=== PATIENT | male | born 1970 | race Two or more races ===

== ENCOUNTER → 2020-07-12 15:18 | Outpatient (CLI) | payer OTHER | END | disposition home or self-care (01) | LOC: LAB 15:18 | PROVIDERS: ATTEND Radiology Diagnostic Radiology | DX: N20.0 Calculus of kidney (principal) ==

== ENCOUNTER 2020-07-16 07:26 | Outpatient (CLI) | payer OTHER | END 2020-07-16 07:40 | disposition home or self-care (01) | LOC: TOM 07:26 | PROVIDERS: ATTEND Family Medicine | DX: M79.12 Myalgia of auxiliary muscles, head and neck (principal); M99.01 Segmental and somatic dysfunction of cervical region; M99.02 Segmental and somatic dysfunction of thoracic region; M99.03 Segmental and somatic dysfunction of lumbar region ==